=== PATIENT | female | born 1960 | race African-American/Black ===

== ENCOUNTER 2021-10-17 11:55 | Emergency (ER) | payer MEDICAID ==
[~2021-10-17] VITALS: Ht 162.6 cm; Wt 94.0 kg
[2021-10-17 11:58] VITALS: BP 144/75
[2021-10-17 15:14] LABS: CLARITY URINE CLEAR (CLEAR); COLOR URINE YELLOW (YELLOW); KETONES URINE TRACE (NEGATIVE); LEUKOCYTE ESTERASE URINE TRACE (NEGATIVE); NITRITE URINE NEGATIVE (NEGATIVE); OCCULT BLOOD URINE NEGATIVE (NEGATIVE); PH URINE 5.5 (4.5-8.0); PROTEIN URINE NEGATIVE (NEGATIVE); SPECIFIC GRAVITY URINE 1.025 (1.005-1.030)
== END 2021-10-17 17:43 | disposition left against medical advice (07) ==
LOC: ER 11:55
DX: Z53.21 Procedure and treatment not carried out due to patient leaving prior to being seen by health care provider (principal)
CPT/HCPCS: 81003

== ENCOUNTER 2022-08-25 13:51 | Emergency (ER) | payer MEDICAID ==
[~2022-08-25] VITALS: Ht 162.6 cm; Wt 89.0 kg
[2022-08-25] MEDS ORDERED: IBUPROFEN 400MG TABLET PO ONE (15:15)
[2022-08-25] MEDS ORDERED: IBUP-2028 MT (15:49)
[2022-08-25 16:03] VITALS: BP 159/74
== END 2022-08-25 16:10 | disposition home or self-care (01) ==
LOC: ER 13:51
DX: S83.8X1A Sprain of other specified parts of right knee, initial encounter (principal); F32.A Depression, unspecified; E78.00 Pure hypercholesterolemia, unspecified; Z98.51 Tubal ligation status; Z91.040 Latex allergy status; W01.0XXA Fall on same level from slipping, tripping and stumbling without subsequent striking against object, initial encounter; Y93.89 Activity, other specified; Y92.018 Other place in single-family (private) house as the place of occurrence of the external cause
CPT/HCPCS: 73560; 99283

== ENCOUNTER 2023-07-15 11:19 | Emergency (ER) | payer MEDICAID ==
[~2023-07-15] VITALS: Ht 162.6 cm; Wt 88.0 kg
[~2023-07-15 11:19] MED LIST: IBUP-2028 MT
[2023-07-15 11:28] VITALS: BP 140/66; PULSE 68; RESP 17; TEMP 98.5; O2SAT 98
== END 2023-07-15 14:50 | disposition home or self-care (01) ==
LOC: ER 11:19
DX: L60.2 Onychogryphosis (principal)
CPT/HCPCS: 99281